=== PATIENT | female | born 1995 | race Caucasian/White ===

== ENCOUNTER 2017-06-19 12:38 | Emergency (ER) | payer MEDICAID, OTHER ==
[~2017-06-19] VITALS: Ht 170.2 cm; Wt 70.0 kg
[~2017-06-19 12:38] MED LIST: CLIN150 PO; IBUP600T26 PO
[2017-06-19 12:41] VITALS: BP 112/70; PULSE 62; RESP 16; TEMP 97.7; O2SAT 100
--- NOTE | 2017-06-19 15:14 | PD ---
HPI . left eyelid swelling Chief Complaint: Eye Problems/Injury Time Seen by Provider: 14:24 Travel History International Travel<30 days: No Contact w/Intl Traveler<30days: No Traveled to known affect area: No History of Present Illness HPI 21-year-old female presents emergency department for evaluation of left eyelid swelling. Patient states her left eyelid has been sore for the last 2 days but she just noticed the swelling last night. Patient wears glasses. She is not a contact lens wearer. Patient denies any blurred vision or visual disturbances. Patient denies any major medical history and does not take any daily medication. PFSH Past Medical History ADHD: Yes (?) Blood Disorders: No Cancer: No Cardiovascular Problems: No Chemotherapy: No Diabetes: No Diminished Hearing: No Implanted Vascular Access Dvce: No Psychiatric: No Respiratory: No Migraines: No Renal Failure: No Seizures: No Sickle Cell Disease: No Thyroid Disease: No Ulcer: No ?: Not LMP: 06/08/17 : 0 Past Surgical History Other Surgery: No Social History Alcohol Use: No Tobacco Use: No (QUIT OCTOBER 2015) Substance Use: No Allergies-Medications (Allergen,Severity, Reaction): Coded Allergies: penicillin G (Unverified Allergy, Severe, 03/08/17) Reported Meds & Prescriptions Reported Meds & Active Scripts Active Erythromycin Opth Oint 5 Mg/Gm Oint 1 Applic LEFT EYE QID 7 Days Review of Systems Except as stated in HPI: all other systems reviewed are Neg Physical Exam Narrative GENERAL: Well-nourished, well-developed 21-year-old female patient in no acute distress. Nontoxic appearing. SKIN: Focused skin assessment warm/dry. HEAD: Normocephalic. Atraumatic. EYES: Mild erythema and edema noted to the left lower eyelid. No purulent drainage. No scleral icterus. No injection or drainage. VISUAL ACUITY: Ministerio 20/13, Left 20/15, Right 20/25 NECK: Supple, trachea midline. No JVD or lymphadenopathy. CARDIOVASCULAR: Regular rate and rhythm without murmurs, gallops, or rubs. RESPIRATORY: Breath sounds equal bilaterally. No accessory muscle use. GASTROINTESTINAL: Abdomen soft, non-tender, nondistended. MUSCULOSKELETAL: No cyanosis, or edema. Data Data Last Documented VS Vital Signs Date Time Temp Pulse Resp B/P (MAP) Pulse Ox O2 Delivery O2 Flow Rate FiO2 06/19/17 15:47 06/19/17 12:41 97.7 62 16 100 Orders Orders Ed Discharge Order (06/19/17 15:32) MDM Medical Decision Making Medical Screen Exam Complete: Yes Emergency Medical Condition: Yes Differential Diagnosis Differential diagnoses include but not limited to blepharitis, conjunctivitis, stye Narrative Course 21-year-old female presents to emergency room for left eyelid swelling. No purulent drainage noted. Patient denies any blurred vision or visual disturbances. Patient denies any major medical history. Patient is not a contact lens wearer. Patient given a prescription for erythromycin ophthalmic ointment and discharged home with instructions to follow-up with her senior game designer if symptoms persist but otherwise return to the emergency Department with any worsening condition. Diagnosis Primary Impression: Swelling of left eyelid Referrals: Pit Operator Patient Instructions: General InstructionsBennie (ED) Additional Instructions: Please return to emergency department if your symptoms return or worsen. Follow up with an senior game designer if symptoms persist. Take medications as prescribed. Use warm moist compress to the area to help reduce swelling. May use ibuprofen or Tylenol as needed for pain or swelling. Med/Other Pt SpecificInfo: Prescription(s) given Scripts Erythromycin Opth Oint (Erythromycin Opth Oint) 5 Mg/Gm Oint 1 APPLIC LEFT EYE QID for Infection for 7 Days, #1 TUBE 0 Refills Prov: Bhavani Amador Nohelia HENRIQUEZ 06/19/17 Disposition: 01 DISCHARGE HOME Condition: Stable Perry,Bhavani HENRIQUEZ Jun 19, 2017 15:14
[2017-06-19] MEDS ORDERED: ERYTOIN10 LEFT EYE (15:24)
== END 2017-06-19 15:48 | disposition home or self-care (01) ==
LOC: NEPD 12:38
DX: H02.846 Edema of left eye, unspecified eyelid (principal)
CPT/HCPCS: 99283